=== PATIENT | male | born 1965 | race Caucasian/White ===

== ENCOUNTER 2020-10-29 02:17 | Inpatient (IN) | payer BC, SELFPAY ==
[2020-10-29] MEDS ORDERED: Neomycin-Polymyxin 1 ML AMP ONE ×2 (04:15→05:38)
[2020-10-29] MEDS ORDERED: Bupivacaine PF 0.5% 30 ML VIAL ONE (04:16)
[2020-10-29] MEDS ORDERED: Fentanyl 250 MCG/5 ML VIAL ONE (04:28)
[2020-10-29] MEDS ORDERED: Midazolam HCl 2 mg/2 ml Vial ONE (04:28)
[2020-10-29] MEDS ORDERED: Dexamethasone 20 MG/5 ML VIAL ONE (04:45)
[2020-10-29] MEDS ORDERED: Ketorolac Tromethamine 30 MG/ML VIAL ONE (04:45)
[2020-10-29] MEDS ORDERED: Ondansetron PF 4 MG/2 ML Vial ONE (04:45)
[2020-10-29] MEDS ORDERED: Rocuronium Bromide 10 MG/ML (10ML VIAL) ONE (04:45)
[2020-10-29] MEDS ORDERED: PHENYLEPHRINE-NS 100 MCG/ML 10 ML SYRINGE ONE (04:45)
[2020-10-29] MEDS ORDERED: PROPOFOL 200 MG/20 ML VIAL ONE (04:45)
[2020-10-29] MEDS ORDERED: Lidocaine 2% PF 5 ML VIAL ONE (04:45)
[2020-10-29] MEDS ORDERED: Milk Of Magnesia 30 ML UDCUP PO PRN (04:54)
[2020-10-29] MEDS ORDERED: HYDROcodone/Acetaminophen 5/325 mg Tablet PO PRN (04:54)
[2020-10-29] MEDS ORDERED: Morphine 4 MG/ML VIAL SLOW IVP PRN (04:54)
[2020-10-29] MEDS ORDERED: Acetaminophen 325 MG TAB PO PRN (04:54)
[2020-10-29] MEDS ORDERED: Ondansetron PF 4 MG/2 ML Vial IVP PRN (04:54)
[2020-10-29] MEDS ORDERED: traMADol HCl 50 MG TAB PO PRN (04:54)
[2020-10-29] MEDS ORDERED: Meperidine HCl/PF 25 MG/ML VIAL IM PRN (04:57)
[2020-10-29] MEDS ORDERED: TETANUS AND DIPHTHERIA TOX/PF 0.5 ML DISP.SYRIN IM SCH (05:00)
[2020-10-29 05:32] LABS: SARS-CoV-2 NAA Rapid Test Not Detected (NotDetected)
[2020-10-29] MEDS ORDERED: Bacitracin Zinc Ointment 30 gm TUBE ONE (08:38)
[2020-10-29 11:54] VITALS: BMI 36.9
[2020-10-29 12:52] LABS: Anion Gap 15 mmol/L (10-20); BUN (Urea Nitrogen) 13 mg/dL (8.4-25.7); Calc. Creatinine Clearance 128 mL/min (70-130); Calcium 8.2 mg/dL (7.8-10.44); Carbon Dioxide 20 mmol/L (22-29); Chloride 104 mmol/L (98-107); Glucose 179 mg/dL (70-105); Potassium 4.7 mmol/L (3.5-5.1); Sodium 134 mmol/L (136-145)
[2020-10-29] MEDS: Carvedilol 6.25 MG TAB PO SCH ×2 (14:22→17:54)
[2020-10-29] MEDS: Aspirin 81 mg Enteric Coated Tablet PO SCH ×2 (14:23→20:15)
[2020-10-29] MEDS: Sodium Chloride 0.9% 100 ML IV SCH ×7 (14:24→20:22)
[2020-10-29] MEDS: Vancomycin 1.5 GRAM/300 ML BAG 1.5 GM in Premix Bag 1 BAG IVPB SCH (14:28)
[2020-10-30] MEDS: Vancomycin 1.5 GRAM/300 ML BAG 1.5 GM in Premix Bag 1 BAG IVPB SCH ×2 (02:03→14:26)
[2020-10-30 08:13] VITALS: TEMP 97.9
[2020-10-30] MEDS: Carvedilol 6.25 MG TAB PO SCH (08:32)
[2020-10-30] MEDS: Aspirin 81 mg Enteric Coated Tablet PO SCH (08:32)
[2020-10-30 08:34] VITALS: BP 149/70
[2020-10-30] MEDS ORDERED: Vancomycin 1.5 GRAM/300 ML BAG 1.5 GM in Premix Bag 1 BAG IVPB SCH (09:00)
== END 2020-10-30 17:10 | disposition home or self-care (01) | DRG 513 ==
LOC: ERS 02:17 → SURG A 04:54 → ONC 11:21
PROVIDERS: ADMIT Orthopaedic Surgery Hand Surgery; ATTEND Orthopaedic Surgery Hand Surgery
PROC: 0PSS04Z Reposition Left Thumb Phalanx with Internal Fixation Device, Open Approach (ICD-10-PCS; principal; 2020-10-29)
PROC: 01Q60ZZ Repair Radial Nerve, Open Approach (ICD-10-PCS; 2020-10-29)
DX: S62.502B Fracture of unspecified phalanx of left thumb, initial encounter for open fracture (principal); S56.422A Laceration of extensor muscle, fascia and tendon of left index finger at forearm level, initial encounter; Z20.822 Contact with and (suspected) exposure to COVID-19; I10 Essential (primary) hypertension; X58.XXXA Exposure to other specified factors, initial encounter; E11.9 Type 2 diabetes mellitus without complications; Z90.49 Acquired absence of other specified parts of digestive tract; Z79.899 Other long term (current) drug therapy; S64.491A Injury of digital nerve of left index finger, initial encounter; S64.22XA Injury of radial nerve at wrist and hand level of left arm, initial encounter
CPT/HCPCS: 36415; 76000; 80048; G0390; J1100; J1885; J2001; J2250; J2270; J2405; J2704; J3010; J3370; S0020; U0002; U0005